=== PATIENT | male | born 1955 | race Caucasian/White ===

== ENCOUNTER 2018-05-14 00:41 | Emergency (ER) | payer OTHER ==
[2018-05-14 01:26] LABS: Urine Blood TRACE (NEG); Urine Glucose NEGATIVE (NEG); Urine Protein NEGATIVE (NEG); Urine Specific Gravity 1.005 (1.005-1.030)
[2018-05-14 02:03] LABS: Absolute Lymphocytes (CBC) 2.3 K/uL (0.7-4.9); Absolute Monocytes 0.9 K/uL (0.1-1.3); Basophils % 0.6 % (0-1.3); Eosinophils % 4.4 % (0-4.4); Hematocrit 43.2 % (39.6-49.0); Lymphocytes % 23.5 % (15.3-44.8); MPV 7.6 fL (7.6-11.3); Monocytes % 9.3 % (3.3-12.3); RBC Red Blood Cell Count 4.25 M/uL (4.33-5.43)
[2018-05-14 02:10] LABS: BUN Blood Urea Nitrogen 9 mg/dL (7-18); Bicarbonate 22 mmol/L (21-32); Glucose Level 74 mg/dL (74-106); Potassium 3.5 mmol/L (3.5-5.1); Sodium Level 131 mmol/L (136-145)
[2018-05-14] MEDS ORDERED: NA CHLORIDE 0.9% 1,000 ML ONE (02:28)
--- NOTE | 2018-05-14 03:44 | ER ---
Nurse's Notes [facility] Name: Bolivar Menendez Age: 63 yrs Sex: Male : 1955 Arrival Date: 05/14/2018 Time: 00:43 Bed 20 Private MD: Diagnosis: flank pain Presentation: 05/14 00:50 Presenting complaint: Patient states: he is having right sided pain radiating to his bb abdomen since Sunday but the pain is getting worse pt states he has hx of kidney stones but it has been a long time ago. Transition of care: patient was not received from another setting of care. Onset of symptoms was May 11, 2018. Risk Assessment: Do you want to hurt yourself or someone else? Patient reports no desire to harm self or others. Initial Sepsis Screen: Does the patient meet any 2 criteria? No. Patient's initial sepsis screen is negative. Does the patient have a suspected source of infection? No. Patient's initial sepsis screen is negative. Care prior to arrival: None. 00:50 Method Of Arrival: Ambulatory bb 00:50 Acuity: MARCELA 3 bb Historical: - Allergies: 01:09 Methylprednisolone; bb - Home Meds: 01:09 not taking any medications at this time [Active]; bb - PMHx: 01:09 High Cholesterol; Hypertension; Repaired Aortic Aneurysm; bb - PSHx: 01:09 Aortic Aneurysm Repair; Left Elbow; Left Wrist; bb - Immunization history:: Adult Immunizations up to date. - Social history:: Smoking status: Patient uses tobacco products, smokes one pack cigarettes per day. Patient uses alcohol, on a daily basis. - Ebola Screening: : No symptoms or risks identified at this time. Screenin:15 Abuse screen: Denies threats or abuse. Denies injuries from another. Nutritional ed1 screening: No deficits noted. Tuberculosis screening: No symptoms or risk factors identified. Fall Risk None identified. Assessment: 01:15 General: Appears uncomfortable, Behavior is calm, cooperative. Pain: Complains of pain ed1 in right flank Pain radiates to abdomen Pain currently is 8 out of 10 on a pain scale. Quality of pain is described as sharp, Pain began 2-3 days ago. Is continuous. Neuro: Level of Consciousness is awake, alert, obeys commands, Oriented to person, place, time, situation. Cardiovascular: Denies chest pain, Heart tones S1 S2 present. Respiratory: Airway is patent Respiratory effort is even, unlabored, Respiratory pattern is regular, symmetrical, Breath sounds are clear bilaterally. GI: Patient currently denies diarrhea, nausea, vomiting. : No signs and/or symptoms were reported regarding the genitourinary system. EENT: No signs and/or symptoms were reported regarding the EENT system. Derm: Skin is intact, is healthy with good turgor, Skin is dry, Skin is normal, Skin temperature is warm. Musculoskeletal: Circulation, motion, and sensation intact. Range of motion: intact in all extremities. 02:22 Reassessment: Patient appears in no apparent distress at this time. No changes from ed1 previously documented assessment. Patient and/or family updated on plan of care and expected duration. Pain level reassessed. Patient is alert, oriented x 3, equal unlabored respirations, skin warm/dry/pink. Patient states symptoms have not improved. 03:57 Reassessment: Patient and/or family updated on plan of care and expected duration. Pain ed1 level reassessed. Dr. Gomes at bedside to discuss discharge with patient. Pt's states "I just don't know how they are going to send someone home that is in pain." Patient states symptoms have not improved. 04:02 Reassessment: Upon discharge pt was exiting the ER and pt's stopped Dr. Gomes and ed1 stated "Yall want me to take him home like this?" Dr. Gmoes assisted pt back to room and asked this nurse to undo the discharge at this time.. Dr. Gomes at bedside. 05:14 Reassessment: Patient and/or family updated on plan of care and expected duration. Pain ed1 level reassessed. Patient is alert, oriented x 3, equal unlabored respirations, skin warm/dry/pink. Pt able to stand and ambulate without difficulty. Okay to discharge per Dr. Gomes Patient states feeling better. Patient states symptoms have improved. Vital Signs: 01:09 BP 158 / 94; Pulse 56; Resp 18 S; Temp 97.8(O); Pulse Ox 100% on R/A; Weight 79.38 kg bb (R); Height 5 ft. 10 in. (177.80 cm) (R); Pain 8/10; 02:22 BP 154 / 89; Pulse 52; Resp 18; Pulse Ox 98% on R/A; Pain 8/10; ed1 03:57 BP 162 / 87; Pulse 55; Resp 19; Temp 98.1(O); Pulse Ox 99% on R/A; Pain 8/10; ed1 01:09 Body Mass Index 25.11 (79.38 kg, 177.80 cm) bb ED Course: 00:43 Patient arrived in ED. am2 00:48 Citlaly Andrade FNP-C is PHCP. kb 00:48 Nishant Gomes MD is Attending Physician. kb 01:07 Triage completed. bb 01:09 Arm band placed on Patient placed in an exam room, on a stretcher, on pulse oximetry. bb 01:10 Urine collected: clean catch specimen, clear. bb 01:15 Patient has correct armband on for positive identification. Placed in gown. Bed in low ed1 position. Call light in reach. Pulse ox on. NIBP on. 01:25 Soledad Choe RN is Primary Nurse. ed1 01:35 Initial lab(s) drawn, by wv, sent to lab. Inserted saline lock: 20 gauge in right bb forearm, using aseptic technique. Blood collected. 02:[address] Scan. ed1 03:04 CT Stone Protocol In Process Unspecified. EDMS 03:57 No provider procedures requiring assistance completed. IV discontinued, intact, ed1 bleeding controlled, No redness/swelling at site. Pressure dressing applied. 04:02 PHCP role handed off by Citlaly Andrade FNP-C ed1 Administered Medications: 02:19 Drug: NS 0.9% 1000 ml Route: IV; Rate: 1000 ml; Site: right forearm; ed1 04:01 Follow up: IV Status: Completed infusion; IV Intake: 1000ml ed1 04:22 Drug: TORadol 30 mg Route: IM; Site: right ventrogluteal; ed1 05:16 Follow up: Response: No adverse reaction; Pain is decreased ed1 Intake: 04:01 IV: 1000ml; Total: 1000ml. ed1 Outcome: 03:44 Discharge ordered by . gs 03:57 Discharged to home ambulatory, with family. ed1 03:57 Condition: good 03:57 Discharge instructions given to patient, Instructed on discharge instructions, follow up and referral plans. Demonstrated understanding of instructions, follow-up care. 04:00 Patient left the ED. ed1 05:15 Patient left the ED. ed1 Signatures: Dispatcher [employer] EDCitlaly Murphy FNP-C FNP-Alsi Kelly, RN RN bb Soledad Choe RN RN ed1 Nena Molina am2 Nishant Gomes MD MD Corrections: (The following items were deleted from the chart) 03:58 03:57 Reassessment: Dr. Gomes at bedside to discuss discharge with patient. Pt's ed1 states "I just don't know how they are going to send someone home that is in pain." ed1
--- NOTE | 2018-05-14 03:44 | EDPHYS ---
Physician Documentation [facility] Name: Bolivar Menendez Age: 63 yrs Sex: Male : 1955 Arrival Date: 05/14/2018 Time: 00:43 Bed 20 Private MD: ED Physician Nishant Gomes HPI: 05/14 02:09 This 63 yrs old Male presents to ER via Ambulatory with complaints of R side kb Pain. 02:09 The patient complains of pain in the right flank. The pain radiates to the right lower kb quadrant. Onset: The symptoms/episode began/occurred 2 day(s) ago. Modifying factors: The symptoms are alleviated by remaining still, the symptoms are aggravated by movement, palpation/percussion. Associated signs and symptoms: The patient has no apparent associated signs or symptoms. Severity of pain: At its worst the pain was moderate in the emergency department the pain is unchanged. The patient has experienced similar episodes in the past, a few times. The patient has not recently seen a physician. Historical: - Allergies: 01: Methylprednisolone; bb - Home Meds: 01: not taking any medications at this time [Active]; bb - PMHx: 01:09 High Cholesterol; Hypertension; Repaired Aortic Aneurysm; bb - PSHx: 01:09 Aortic Aneurysm Repair; Left Elbow; Left Wrist; bb - Immunization history:: Adult Immunizations up to date. - Social history:: Smoking status: Patient uses tobacco products, smokes one pack cigarettes per day. Patient uses alcohol, on a daily basis. - Ebola Screening: : No symptoms or risks identified at this time. ROS: 02:06 Constitutional: Negative for fever, chills, and weight loss, ENT: Negative for injury, kb pain, and discharge, Neck: Negative for injury, pain, and swelling, Cardiovascular: Negative for chest pain, palpitations, and edema, Respiratory: Negative for shortness of breath, cough, wheezing, and pleuritic chest pain, Abdomen/GI: Negative for abdominal pain, nausea, vomiting, diarrhea, and constipation, MS/Extremity: Negative for injury and deformity, Skin: Negative for injury, rash, and discoloration, Neuro: Negative for headache, weakness, numbness, tingling, and seizure. 02:06 Back: Positive for flank pain, on the right, radiated pain. 02:06 : Positive for flank pain. Exam: 02:06 Constitutional: This is a well developed, well nourished patient who is awake, alert, kb and in no acute distress. Head/Face: Normocephalic, atraumatic. ENT: Nares patent. No nasal discharge, no septal abnormalities noted. Tympanic membranes are normal and external auditory canals are clear. Oropharynx with no redness, swelling, or masses, exudates, or evidence of obstruction, uvula midline. Mucous membranes moist. Neck: Trachea midline, no thyromegaly or masses palpated, and no cervical lymphadenopathy. Supple, full range of motion without nuchal rigidity, or vertebral point tenderness. No Meningismus. Chest/axilla: Normal chest wall appearance and motion. Nontender with no deformity. No lesions are appreciated. Cardiovascular: Regular rate and rhythm with a normal S1 and S2. No gallops, murmurs, or rubs. Normal PMI, no JVD. No pulse deficits. Respiratory: Lungs have equal breath sounds bilaterally, clear to auscultation and percussion. No rales, rhonchi or wheezes noted. No increased work of breathing, no retractions or nasal flaring. Abdomen/GI: Soft, non-tender, with normal bowel sounds. No distension or tympany. No guarding or rebound. No evidence of tenderness throughout. Skin: Warm, dry with normal turgor. Normal color with no rashes, no lesions, and no evidence of cellulitis. MS/ Extremity: Pulses equal, no cyanosis. Neurovascular intact. Full, normal range of motion. Neuro: Awake and alert, GCS 15, oriented to person, place, time, and situation. Cranial nerves II-XII grossly intact. Motor strength 5/5 in all extremities. Sensory grossly intact. Cerebellar exam normal. Normal gait. 02:06 Back: ROM is normal, normal spinal alignment noted, CVA tenderness, that is mild, that is moderate, is noted on the right. Vital Signs: 01:09 BP 158 / 94; Pulse 56; Resp 18 S; Temp 97.8(O); Pulse Ox 100% on R/A; Weight 79.38 kg bb (R); Height 5 ft. 10 in. (177.80 cm) (R); Pain 8/10; 02:22 BP 154 / 89; Pulse 52; Resp 18; Pulse Ox 98% on R/A; Pain 8/10; ed1 03:57 BP 162 / 87; Pulse 55; Resp 19; Temp 98.1(O); Pulse Ox 99% on R/A; Pain 8/10; ed1 01:09 Body Mass Index 25.11 (79.38 kg, 177.80 cm) claudia MDM: 00:48 Patient medically screened. kb 02:07 Data reviewed: vital signs, nurses notes. Data interpreted: Pulse oximetry: on room air kb is 100 %. Interpretation: normal. 02:29 Transition of care: After a detail discussion of the patient's case, care is kb transferred to iNshant Gomes MD. 05/14 01:03 Order name: CBC with Diff; Complete Time: 02:10 kb 05/14 01:03 Order name: Basic Metabolic Panel; Complete Time: 02:11 kb 05/14 01:02 Order name: CT Stone Protocol; Complete Time: 15:26 kb 05/14 01:07 Order name: Urine Dipstick--Ancillary (enter results); Complete Time: 01:27 ar5 05/14 01:01 Order name: Urine Dipstick-Ancillary (obtain specimen); Complete Time: 01:05 kb 05/14 01:03 Order name: IV Start; Complete Time: 01:41 kb Administered Medications: 02:19 Drug: NS 0.9% 1000 ml Route: IV; Rate: 1000 ml; Site: right forearm; ed1 04:01 Follow up: IV Status: Completed infusion; IV Intake: 1000ml ed1 04:22 Drug: TORadol 30 mg Route: IM; Site: right ventrogluteal; ed1 05:16 Follow up: Response: No adverse reaction; Pain is decreased ed1 Disposition: 05/14/18 03:44 Discharged to Home. Impression: flank pain . - Condition is Stable. - Discharge Instructions: Flank Pain, [id number]. - Medication Reconciliation Form, Thank You Letter, Antibiotic Education, Prescription Opioid Use form. - Follow up: Private Physician; When: 2 - 3 days; Reason: Re-evaluation by your physician. Signatures: Dispatcher [employer] EDOR Citlaly Andrade FNP-C FNP-Ckb Ballard, Brenda, RN RN Soledad Choe RN RN ed1 Nishant Gomes MD MD Corrections: (The following items were deleted from the chart) 04:00 03:44 05/14/2018 03:44 Discharged to Home. Impression: flank pain . Condition is ed1 Stable. Forms are Medication Reconciliation Form, Thank You Letter, Antibiotic Education, Prescription Opioid Use. Follow up: Private Physician; When: 2 - 3 days; Reason: Re-evaluation by your physician. 05:15 04:00 05/14/2018 03:44 Discharged to Home. Impression: flank pain . Condition is ed1 Stable. Discharge Instructions: Flank Pain, [id number]. Forms are Medication Reconciliation Form, Thank You Letter, Antibiotic Education, Prescription Opioid Use. Follow up: Private Physician; When: 2 - 3 days; Reason: Re-evaluation by your physician. ed1
[2018-05-14] MEDS ORDERED: KETOROLAC 30 MG/ML INJ ONE (04:22)
--- NOTE | 2018-05-14 12:13 | RAD REPORT ---
EXAM DESCRIPTION: CT Abdomen and Pelvis Without Intravenous Contrast CLINICAL HISTORY: The patient is 63 years old and is Male; FLANK PAIN TECHNIQUE: Axial computed tomography images of the abdomen and pelvis without intravenous contrast. Sagittal and coronal reformatted images were created and reviewed. This CT exam was performed usi ng one or more of the following dose reduction techniques: automated exposure control, adjustment o f the mA and/or kV according to patient size, and/or use of iterative reconstruction technique. COMPARISON: No relevant prior studies available. FINDINGS: LUNG BASES: Unremarkable. No mass. No consolidation. ABDOMEN: LIVER: The liver is mildly fatty. GALLBLADDER AND BILE DUCTS: No calcified stones. No ductal dilation. PANCREAS: Unremarkable. No ductal dilation. SPLEEN: Splenic granuloma are present. ADRENALS: Unremarkable. No mass. KIDNEYS AND URETERS: Bilateral nonspecific perinephric stranding is present. There is no hydrone phrosis or hydroureter of either kidney. No obstructing renal or ureteral calculus is seen. STOMACH AND BOWEL: The stomach is decompressed. The small bowel is relatively normal in caliber. An umbilical hernia containing a knuckle of small bowel is noted. There is no evidence of strangulat ion. No bowel obstruction is noted. Stool is present throughout the colon. The cecum appears to be fl uid-filled. Colonic diverticula are noted without surrounding inflammation. There is no bowel obstruc tion. PELVIS: APPENDIX: The appendix is normal in caliber without surrounding inflammation. BLADDER: The bladder is well distended. No stones. REPRODUCTIVE: Unremarkable as visualized. ABDOMEN and PELVIS: INTRAPERITONEAL SPACE: Unremarkable. No free air. No significant fluid collection. BONES/JOINTS: No acute fracture. SOFT TISSUES: Unremarkable. VASCULATURE: Evidence of an aortoiliac bypass graft is present. No abdominal aortic aneurysm. LYMPH NODES: Unremarkable. No enlarged lymph nodes. IMPRESSION: Nonspecific bilateral perinephric stranding. Mild superimposed infectious process is pos sible. No obstructing calculus is seen. Electronically signed by: Cecelia Solorzano MD 05/14/2018 3:17 AM CDT Due to temporary technical issues with the PACS/Fluency reporting system, reports are being signed by the in house radiologist as a courtesy to ensure prompt reporting. The interpreting radiologist is f ully responsible for the content of the report.
== END 2018-05-14 05:15 | disposition home or self-care (01) ==
LOC: ER 00:41
DX: R10.31 Right lower quadrant pain (principal); I10 Essential (primary) hypertension; E78.00 Pure hypercholesterolemia, unspecified; Z88.8 Allergy status to other drugs, medicaments and biological substances; F17.210 Nicotine dependence, cigarettes, uncomplicated
CPT/HCPCS: 36415; 74176; 76377; 80048; 81003; 85025; 96360; 96361; 96372; 99284; J7030

== ENCOUNTER 2022-01-04 13:40 | Emergency (ER) | payer OTHER ==
[2022-01-04] MEDS ORDERED: KETOROLAC 30 MG/ML INJ ONE (14:12)
[2022-01-04] MEDS ORDERED: CYCLOBENZAPRINE 10 MG TAB ONE (14:12)
--- NOTE | 2022-01-04 14:40 | RAD REPORT ---
EXAM DESCRIPTION: CT - Spine Lumbar Wo Con - 01/04/2022 2:22 pm CLINICAL HISTORY: back injury COMPARISON: Stone Protocol dated 05/14/2018 TECHNIQUE: Axial noncontrast CT imaging of the lumbar spine was performed with coronal and sagittal re-formatted images. All CT scans are performed using dose optimization technique as appropriate and may include automated exposure control or mA/KV adjustment according to patient size. FINDINGS: Possible nondisplaced fractures of the left L1 and L2 transverse process. Moderate disc he ight loss at L3-4 and mild disc height loss at L4-5. Vacuum disc phenomenon is present. Aorto bi-lisa c stent graft in place. Intramedullary savana in the right femur. Paraspinal tissues are normal in thickness. No paraspinal abscess or hematoma seen. Intervertebral disc disease assessment is inherently limited by CT. Within these limitations, no high -grade canal stenosis suspected. IMPRESSION: Possible nondisplaced left L1 and L2 transverse process fractures. Correlate with site o f pain.
--- NOTE | 2022-01-04 16:06 | ER ---
Nurse's Notes [facility] Name: Bolivar Menendez Jr Age: 66 yrs Sex: Male : 1955 Arrival Date: 01/04/2022 Time: 13:50 Bed 9 Private MD: Diagnosis: Left Transverse Pocess Fracture of L1 and L2 Presentation: 01/04 14:04 Chief complaint: Patient states: L lower back pain since Sunday after pushing a boat ll1 out of the mud. Coronavirus screen: Vaccine status: Patient reports receiving the 2nd dose of the covid vaccine. Client denies travel out of the [place] in the last 14 days. At this time, the client does not indicate any symptoms associated with coronavirus-19. Ebola Screen: Patient denies travel to an Ebola-affected area in the 21 days before illness onset. Initial Sepsis Screen: Does the patient meet any 2 criteria? No. Patient's initial sepsis screen is negative. Does the patient have a suspected source of infection? Yes: Bone or joint infection. Risk Assessment: Do you want to hurt yourself or someone else? Patient reports no desire to harm self or others. Onset of symptoms was January 01, 2022. 14:04 Method Of Arrival: Wheelchair ll1 14:04 Acuity: MARCELA 3 ll1 16:40 Care prior to arrival: None. Mechanism of Injury: No Mechanism of Injury. Trauma event ll1 details: Injury occurred in the [facility]. Triage Assessment: 14:08 General: Appears uncomfortable, Behavior is cooperative, appropriate for age. Pain: ll1 Complains of pain in back Pain currently is 10 out of 10 on a pain scale. Quality of pain is described as aching. Musculoskeletal: Reports pain in L lower back. Trauma Activation: Not Applicable Physician: ED Physician; Name: ; Notified At: ; Arrived At: Physician: General Surgeon; Name: ; Notified At: ; Arrived At: Physician: Radiology; Name: ; Notified At: ; Arrived At: Physician: Respiratory; Name: ; Notified At: ; Arrived At: Physician: Lab; Name: ; Notified At: ; Arrived At: Historical: - Allergies: 14:05 Methylprednisolone; ll1 - PMHx: 14:05 High Cholesterol; Hypertension; Repaired Aortic Aneurysm; ll1 - PSHx: 14:05 Aortic aneurysm repair; hip replacement; ll1 - Immunization history:: Client reports receiving the 2nd dose of the Covid vaccine. - Social history:: Smoking status: Patient reports the use of cigarette tobacco products, smokes one pack cigarettes per day. - Immunization history: Last tetanus immunization: unknown. - Family history:: not pertinent. Screenin:40 Abuse screen: Denies threats or abuse. Nutritional screening: No deficits noted. ll1 Tuberculosis screening: No symptoms or risk factors identified. Fall Risk Ambulatory Aid- Crutches/Cane/Walker (15 pts). Gait- Weak (10 pts.). Total Fernandez Fall Scale indicates Low Risk Score (25-44 pts). Fall prevention measures have been instituted. Side Rails Up X 2 Placed close to Nursing Station Frequent Obs/Assesments occuring Family Present and informed to notify staff if they need to leave bedside As available Patient and Family Educated on Fall Prevention Program and strategies. Primary Survey: 16:40 NO uncontrolled hemorrhage observed. A: The client is awake and alert. The airway is ll1 patent. Breathing/Chest: Spontaneous respiratory effort, equal unlabored respirations, breath sounds clear bilaterally, regular pattern, symmetrical chest rise and fall. Circulation: No external hemorrhage present. Regular and strong central pulse, skin warm/dry/normal color. Disability Client is alert. Exposure/Environment: There is no evidence of uncontrolled external bleeding. 16:40 Reassessment Alertness and Airway: Awake and alert. The airway is patent. Breathing: ll1 Spontaneous respiratory effort, equal unlabored respirations, breath sounds clear bilaterally, regular pattern with symmetrical chest rise and fall. Circulation: No external hemorrhage noted. Regular and strong central pulse, skin warm/dry/normal color. Disability: Alert. Assessment: 15:53 Reassessment: No changes from previously documented assessment. Patient and/or family ll1 updated on plan of care and expected duration. Pain level reassessed. Patient is alert, oriented x 3, equal unlabored respirations, skin warm/dry/pink. 16:39 Reassessment: No changes from previously documented assessment. Patient and/or family ll1 updated on plan of care and expected duration. Pain level reassessed. Patient is alert, oriented x 3, equal unlabored respirations, skin warm/dry/pink. Vital Signs: 14:04 BP 149 / 90; Pulse 88; Resp 18; Temp 98.9; Pulse Ox 98% on R/A; Weight 81.65 kg; Height ll1 5 ft. 10 in. (177.80 cm); Pain 10/10; 16:39 BP 145 / 92; Pulse 78; Resp 16; Pulse Ox 98% ; Pain 9/10; ll1 14:04 Body Mass Index 25.83 (81.65 kg, 177.80 cm) ll1 Alicja Coma Score: 16:39 Eye Response: spontaneous(4). Verbal Response: oriented(5). Motor Response: obeys ll1 commands(6). Total: 15. Trauma Score (Adult): 16:39 Eye Response: spontaneous(1); Verbal Response: oriented(1); Motor Response: obeys ll1 commands(2); Systolic BP: > 89 mm Hg(4); Respiratory Rate: 10 to 29 per min(4); Hudson Score: 15; Trauma Score: 12 ED Course: 13:50 Patient arrived in ED. am2 14:01 Kash Paige MD is Attending Physician. rt 14:04 Triage completed. ll1 14:06 Arm band placed on. ll1 14:22 CT Lumbar Spine Wo Con In Process Unspecified. EDMS 15:54 Patient placed in an exam room, on a stretcher. iw 16:40 No provider procedures requiring assistance completed. Patient did not have IV access ll1 during this emergency room visit. 16:41 Patient has correct armband on for positive identification. Bed in low position. Call ll1 light in reach. Cardiac monitoring not applicable on this patient. 16:41 Patient maintains SpO2 saturation greater than 95% on room air. ll1 16:41 Thermoregulation: warm blanket given to patient. ll1 Administered Medications: 14:15 Drug: Ketorolac 30 mg {Note: pain 10/10.} Route: IM; Site: left deltoid; ll1 16:39 Follow up: Response: No adverse reaction; Pain is decreased; RASS: Alert and Calm (0) ll1 14:15 Drug: Flexeril (cyclobenzaprine) 10 mg Route: PO; ll1 16:39 Follow up: Response: No adverse reaction; Pain is decreased; RASS: Alert and Calm (0) ll1 Medication: 16:41 VIS not applicable for this client. ll1 Intake: 16:39 PO: 100ml; Total: 100ml. ll1 Output: 16:39 Urine: 0ml; Total: 0ml. ll1 Outcome: 16:05 Discharge ordered by . rt 16:41 Discharged to home via wheelchair. ll1 16:41 Condition: stable 16:41 Discharge instructions given to patient, Instructed on discharge instructions, follow up and referral plans. no drinking with medication, no driving heavy equipment, medication usage, Demonstrated understanding of instructions, follow-up care, medications, Prescriptions given X 2. 16:41 Patient's length of stay was not longer than 2 hours. ll1 16:42 Patient left the ED. ll1 Signatures: Dispatcher [employer] EDMS Jenny Grijalva RN RN Nena Molina Lynsay, RN RN ll1 Kash Paige MD MD rt Corrections: (The following items were deleted from the chart) 14:08 14:04 Resp 18bpm; Temp 98.9F; Pain 10/10; ll1 ll1
--- NOTE | 2022-01-04 16:06 | EDPHYS ---
Physician Documentation [facility] Name: Bolivar Menendez Jr Age: 66 yrs Sex: Male : 1955 Arrival Date: 01/04/2022 Time: 13:50 Bed 9 Private MD: ED Physician Kash Paige HPI: 01/04 16:06 This 66 yrs old Male presents to ER via Wheelchair with complaints of Back Injury, Back rt Pain. 16:06 The patient presents with pain and an injury. The symptoms are located in the low back. rt Onset: The symptoms/episode began/occurred 4 day(s) ago. The pain does not radiate. Associated signs and symptoms: The patient has no apparent associated signs or symptoms. Patient presents to the ED with left-sided lumbar back pain that started when the patient was straining to push a boat on a muddy incline. The patient states that he felt a pop, has had pain since then. Is unrelieved with Tylenol. He denies any radiation, bowel, bladder symptoms. Denies saddle anesthesia. Denies other acute complaints, symptoms are moderate in severity, aching nature, no other aggravating or alleviating factors.. Historical: - Allergies: 14:05 Methylprednisolone; ll1 - PMHx: 14:05 High Cholesterol; Hypertension; Repaired Aortic Aneurysm; ll1 - PSHx: 14:05 Aortic aneurysm repair; hip replacement; ll1 - Immunization history:: Client reports receiving the 2nd dose of the Covid vaccine. - Social history:: Smoking status: Patient reports the use of cigarette tobacco products, smokes one pack cigarettes per day. - Immunization history: Last tetanus immunization: unknown. - Family history:: not pertinent. ROS: 16:06 Constitutional: Negative for fever, chills, and weight loss, Eyes: Negative for injury, rt pain, redness, and discharge, ENT: Negative for injury, pain, and discharge, Neck: Negative for injury, pain, and swelling, Cardiovascular: Negative for chest pain, palpitations, and edema, Respiratory: Negative for shortness of breath, cough, wheezing, and pleuritic chest pain, Abdomen/GI: Negative for abdominal pain, nausea, vomiting, diarrhea, and constipation, Skin: Negative for injury, rash, and discoloration, Neuro: Negative for headache, weakness, numbness, tingling, and seizure, Psych: Negative for depression, anxiety, suicide ideation, homicidal ideation, and hallucinations. 16:06 Back: Positive for injury or acute deformity, pain at rest. Exam: 16:06 Constitutional: This is a well developed, well nourished patient who is awake, alert, rt and in no acute distress. Head/Face: Normocephalic, atraumatic. Chest/axilla: Normal chest wall appearance and motion. Nontender with no deformity. No lesions are appreciated. Cardiovascular: Regular rate and rhythm with a normal S1 and S2. No gallops, murmurs, or rubs. Normal PMI, no JVD. No pulse deficits. Respiratory: Lungs have equal breath sounds bilaterally, clear to auscultation and percussion. No rales, rhonchi or wheezes noted. No increased work of breathing, no retractions or nasal flaring. Abdomen/GI: Soft, non-tender, with normal bowel sounds. No distension or tympany. No guarding or rebound. No evidence of tenderness throughout. Skin: Warm, dry with normal turgor. Normal color with no rashes, no lesions, and no evidence of cellulitis. MS/ Extremity: Pulses equal, no cyanosis. Neurovascular intact. Full, normal range of motion. Neuro: Awake and alert, GCS 15, oriented to person, place, time, and situation. Cranial nerves II-XII grossly intact. Motor strength 5/5 in all extremities. Sensory grossly intact. Cerebellar exam normal. Normal gait. Psych: Awake, alert, with orientation to person, place and time. Behavior, mood, and affect are within normal limits. 16:06 Back: Tenderness to the left upper lumbar region, no midline tenderness, no CVAT, no step-offs. Vital Signs: 14:04 BP 149 / 90; Pulse 88; Resp 18; Temp 98.9; Pulse Ox 98% on R/A; Weight 81.65 kg; Height ll1 5 ft. 10 in. (177.80 cm); Pain 10/10; 16:39 BP 145 / 92; Pulse 78; Resp 16; Pulse Ox 98% ; Pain 9/10; ll1 14:04 Body Mass Index 25.83 (81.65 kg, 177.80 cm) ll1 Anderson Coma Score: 16:39 Eye Response: spontaneous(4). Verbal Response: oriented(5). Motor Response: obeys ll1 commands(6). Total: 15. Trauma Score (Adult): 16:39 Eye Response: spontaneous(1); Verbal Response: oriented(1); Motor Response: obeys ll1 commands(2); Systolic BP: > 89 mm Hg(4); Respiratory Rate: 10 to 29 per min(4); Alicja Score: 15; Trauma Score: 12 MDM: 14:09 Patient medically screened. rt 16:06 Differential diagnosis: Abdominal Aortic Aneurysm Epidural or Perispinal Abcess rt Ligament Injury. ED course: Patient presents to the ED with back injury. He has no radicular symptoms, bowel, bladder incontinence. No saddle anesthesia. Very low suspicion for cauda equina syndrome, spinal epidural abscess. CT scan shows transverse process fractures of L1 and L2 correlating with the area of his pain. Symptoms are improving with Toradol, Flexeril in the ED, stable for outpatient care, return precautions discussed. 16:12 Data reviewed: vital signs, nurses notes, radiologic studies. rt 01/04 14:06 Order name: CT Lumbar Spine Wo Con; Complete Time: 14:51 rt Administered Medications: 14:15 Drug: Ketorolac 30 mg {Note: pain 10/10.} Route: IM; Site: left deltoid; ll1 16:39 Follow up: Response: No adverse reaction; Pain is decreased; RASS: Alert and Calm (0) ll1 14:15 Drug: Flexeril (cyclobenzaprine) 10 mg Route: PO; ll1 16:39 Follow up: Response: No adverse reaction; Pain is decreased; RASS: Alert and Calm (0) ll1 Disposition Summary: 01/04/22 16:05 Discharge Ordered Location: Home rt Problem: new rt Symptoms: have improved rt Condition: Stable rt Diagnosis - Left Transverse Pocess Fracture of L1 and L2 rt Followup: rt - With: Private Physician - When: 2 - 3 days - Reason: Discharge Instructions: - Discharge Summary Sheet rt - Transverse Process Fracture rt Forms: - Medication Reconciliation Form rt - Thank You Letter rt - Antibiotic Education rt - Prescription Opioid Use rt Prescriptions: - Cyclobenzaprine 10 mg Oral Tablet - take 1 tablet by ORAL route every 8 hours As needed; 18 tablet; Refills: 0, rt Product Selection Permitted - Tylenol-Codeine #3 300 mg-30 mg Oral - take 1 tablet by ORAL route every 6 hours; 18 tablet; Refills: 0, Product rt Selection Permitted Signatures: Dispatcher [employer] Casper Dalal RN RN ll1 Kash Paige MD MD rt
[2022-01-04 17:17] VITALS: TEMP 98.9; O2SAT 98
[2022-01-04 17:18] VITALS: BP 145/92
== END 2022-01-04 16:42 | disposition home or self-care (01) ==
LOC: ER 13:40
DX: S32.019A Unspecified fracture of first lumbar vertebra, initial encounter for closed fracture (principal); S32.029A Unspecified fracture of second lumbar vertebra, initial encounter for closed fracture; I10 Essential (primary) hypertension; F17.210 Nicotine dependence, cigarettes, uncomplicated
CPT/HCPCS: 72131; 96372; 99284